=== PATIENT | female | born 1970 | race Caucasian/White ===

== ENCOUNTER → 2016-09-10 | Outpatient (CLI) | payer OTHER | LOC: ULTRA 07:51 | DX: R10.9 Unspecified abdominal pain (principal) ==

== ENCOUNTER → 2016-11-21 | Outpatient (CLI) | payer OTHER | LOC: RAD 15:18 | DX: M25.512 Pain in left shoulder (principal) ==

== ENCOUNTER → 2016-12-06 | Outpatient (CLI) | payer OTHER | LOC: MRI 15:01 | DX: S43.431A Superior glenoid labrum lesion of right shoulder, initial encounter (principal); M25.412 Effusion, left shoulder; X58.XXXA Exposure to other specified factors, initial encounter; Y93.89 Activity, other specified; Y92.89 Other specified places as the place of occurrence of the external cause; Y99.8 Other external cause status ==